=== PATIENT | female | born 1955 | race Caucasian/White ===

== ENCOUNTER 2022-08-14 09:26 | Outpatient (CLI) | payer MEDICARE, OTHER ==
[2022-08-15] MEDS ORDERED: PREG100C PO (14:29)
[2022-08-15] MEDS ORDERED: GABA-532 PO (14:29)
[2022-08-15] MEDS ORDERED: PREG50CA PO (14:29)
[2022-08-15] MEDS ORDERED: ATOR40TA PO (14:29)
[2022-08-15] MEDS ORDERED: IBUP-1957 PO (14:31)
[2022-08-15] MEDS ORDERED: OMEP40CA21 PO (14:31)
[2022-08-15] MEDS ORDERED: ALBU8HFA4 INH (14:33)
[2022-08-15] MEDS ORDERED: CYAN-51 PO (14:35)
[2022-08-15] MEDS ORDERED: CALC600T35 PO (14:35)
[2022-08-15] MEDS ORDERED: CHOL400T58 PO (17:51)
[2022-08-15] MEDS ORDERED: ESTR0.5T PO (17:51)
[2022-08-15] MEDS ORDERED: ASPI-866 PO (17:51)
[2022-08-15] MEDS ORDERED: METF-440 PO (17:51)
[2022-08-15] MEDS ORDERED: VITA200T6 PO (17:51)
== END 2022-08-14 23:59 | disposition home or self-care (01) ==
LOC: LAB 09:26
PROVIDERS: ATTEND Obstetrics & Gynecology
DX: Z01.812 Encounter for preprocedural laboratory examination (principal); Z20.822 Contact with and (suspected) exposure to COVID-19

== ENCOUNTER 2022-08-15 08:52 | Inpatient (IN) | payer MEDICARE, OTHER ==
[~2022-08-15] VITALS: Ht 152.4 cm; Wt 62.6 kg
[~2022-08-15 08:52] MED LIST: LIDOCAINE 1%-EPI 1:100,000 20 ML VIAL ONE; LIDOCAINE 2%-EPI 1:100,000 20 ML VIAL ONE
[2022-08-15] MEDS ORDERED: CEFAZOLIN 50 ML IV ONE (09:14)
[2022-08-15 09:31] LABS: HEMATOCRIT 42.1 % (31.2-41.9); MEAN CORPUSCULAR HEMOGLOBIN 29.5 uug (24.7-32.8); MEAN CORPUSCULAR VOLUME 91.1 fL (75.5-95.3); PLATELET COUNT (AUTO) 218 K/uL (179-408)
[2022-08-15 09:37] LABS: *BILIRUBIN,URIN NEGATIVE (NEGATIVE); *CLARITY,URINE CLEAR (CLEAR); *COLOR,URINE YELLOW (YELLOW); *KETONES,URINE NEGATIVE (NEGATIVE); *UROBILINOGEN,URINE 0.2 E.U./dl (NORMAL); LEUKOCYTE ESTERASE ,URINE NEGATIVE (NEGATIVE); NITRITE, URINE NEGATIVE (NEGATIVE); UGLUCOSE NEGATIVE (NEGATIVE)
[2022-08-15 09:43] LABS: *BLOOD, URINE NEGATIVE (NEGATIVE)
[2022-08-15 09:50] LABS: CREATININE 0.7 mg/dL (0.6-1.3); POTASSIUM 4.8 mmol/L (3.5-5.1)
[2022-08-15 09:56] LABS: BILIRUBIN,TOTAL 0.5 mg/dL (0.2-1.0); TOTAL PROTEIN, SERUM 7.1 g/dL (6.4-8.2)
[2022-08-15] MEDS ORDERED: FENTANYL CITRATE 100 MCG/2 ML AMPUL ONE (10:52)
[2022-08-15] MEDS ORDERED: FAMOTIDINE. 20 MG/2 ML VIAL IV ONE (10:53)
[2022-08-15] MEDS ORDERED: MIDAZOLAM HCL 2 MG/2 ML VIAL ONE (10:53)
[2022-08-15] MEDS ORDERED: ROCURONIUM BROMIDE 50 MG/5 ML VIAL ONE (10:53)
[2022-08-15] MEDS ORDERED: LIDOCAINE-MPF 2% 5 ML VIAL IJ ONE (12:36)
[2022-08-15] MEDS ORDERED: DEXAMETHASONE SOD PHOSPHATE 4 MG INJ IV ONE (12:36)
[2022-08-15] MEDS ORDERED: EPHEDRINE SULFATE 50 MG/ML AMPUL IM ONE (12:36)
[2022-08-15] MEDS ORDERED: PROPOFOL 200 MG/20 ML BOTTLE IV ONE (12:36)
[2022-08-15] MEDS ORDERED: ONDANSETRON 4 MG/2 ML VIAL IV ONE (12:36)
[2022-08-15] MEDS ORDERED: SEVOFLURANE 250 ML BOTTLE IH ONE (12:36)
[2022-08-15] MEDS: BLOOD SUGAR DIAGNOSTIC 1 EACH STRIP VI SCH ×3 (13:30→20:37)
[2022-08-15] MEDS ORDERED: INSULIN REGULAR, HUMAN 300 UNIT/3 ML VIAL SQ PRN (13:30)
[2022-08-15] MEDS ORDERED: HYDROMORPHONE 1 MG/1 ML DISP.SYRIN IV PRN (13:30)
[2022-08-15] MEDS ORDERED: INSULIN REGULAR, HUMAN 300 UNITS/3 ML VIAL SQ PRN (13:30)
[2022-08-15] MEDS ORDERED: DEXTROSE 50% 50 ML DISP.SYRIN IV PRN (13:30)
[2022-08-15] MEDS ORDERED: IV LACTATED RINGERS SOLUTION 1,000 ML IV PRN (13:30)
[2022-08-15] MEDS ORDERED: ATOR40TA PO (14:29)
[2022-08-15] MEDS ORDERED: GABA-532 PO (14:29)
[2022-08-15] MEDS ORDERED: PREG100C PO (14:29)
[2022-08-15] MEDS ORDERED: PREG50CA PO (14:29)
[2022-08-15] MEDS ORDERED: IBUP-1957 PO (14:31)
[2022-08-15] MEDS ORDERED: OMEP40CA21 PO (14:31)
[2022-08-15] MEDS ORDERED: ALBU8HFA4 INH (14:33)
[2022-08-15] MEDS ORDERED: CYAN-51 PO (14:35)
[2022-08-15] MEDS ORDERED: CALC600T35 PO (14:35)
[2022-08-15 15:00] VITALS: BP 115/54
[2022-08-15] MEDS ORDERED: MORPHINE SULFATE 2 MG/1 ML DISP.SYRIN IVP PRN (17:00)
[2022-08-15] MEDS ORDERED: ONDANSETRON 4 MG/2 ML VIAL IV PRN (17:00)
--- NOTE | 2022-08-15 17:00 | NUR ---
Pt. rcvd from surgery in bed. AAOX4. No SOB or any respiratory dress. Denies pain at this point. Continue the admission protocol. All belongings accounted for. F/C draining well.. Kept pt comfortable.
[2022-08-15] MEDS ORDERED: ESTR0.5T PO (17:51)
[2022-08-15] MEDS ORDERED: VITA200T6 PO (17:51)
[2022-08-15] MEDS ORDERED: METF-440 PO (17:51)
[2022-08-15] MEDS ORDERED: ASPI-866 PO (17:51)
[2022-08-15] MEDS ORDERED: CHOL400T58 PO (17:51)
[2022-08-15] MEDS: DOCUSATE SODIUM 100 MG CAPSULE PO SCH (18:06)
[2022-08-15] MEDS: ACETAMINOPHEN 325 MG TABLET PO PRN ×2 (18:07→20:58)
--- NOTE | 2022-08-15 19:08 | NUR ---
Gave Tylenol 650mg as per pt request for pain. Helped the pt. stand and walk 3 hours after admission as tolerated. Keep the pt. comfortable, call light within reach. As per . DO NOT DC ANITHA WILL BE THE ONE TO REMOVE THE PACKING.
[2022-08-15] MEDS: CEFAZOLIN 1 G in IV DEXTROSE 5% 50 ML IV SCH (19:31)
--- NOTE | 2022-08-15 19:42 | NUR ---
NSG: Received patient alert and oriented x4,lying in bed, no c/o pain or discomfort at this time. f/c patent draining yellow urine. continue monitoring for safety. call light w/in reach.
[2022-08-15 20:00] VITALS: BP 105/48
[2022-08-15] MEDS: METFORMIN HCL 500 MG TABLET PO SCH (20:58)
[2022-08-16] MEDS: CEFAZOLIN 1 G in IV DEXTROSE 5% 50 ML IV SCH (03:36)
[2022-08-16 04:00] VITALS: BP 118/54
--- NOTE | 2022-08-16 05:20 | NUR ---
nsg: slept well. denies any pain or discomfort at this time. vaginal packing in place. call light w/in reach.
[2022-08-16] MEDS: BLOOD SUGAR DIAGNOSTIC 1 EACH STRIP VI SCH ×2 (06:34→11:30)
[2022-08-16 07:35] LABS: HEMATOCRIT 37.6 % (31.2-41.9); MEAN CORPUSCULAR HEMOGLOBIN 29.6 uug (24.7-32.8); MEAN CORPUSCULAR VOLUME 90.6 fL (75.5-95.3); PLATELET COUNT (AUTO) 187 K/uL (179-408)
[2022-08-16 07:56] LABS: BILIRUBIN,TOTAL 0.3 mg/dL (0.2-1.0); CREATININE 0.7 mg/dL (0.6-1.3); PHOSPHOROUS 3.9 mg/dL (2.5-4.9); TOTAL PROTEIN, SERUM 5.9 g/dL (6.4-8.2)
[2022-08-16] MEDS: METFORMIN HCL 500 MG TABLET PO SCH (08:00)
[2022-08-16] MEDS ORDERED: HEPARIN SODIUM,PORCINE 5,000 UNITS/ML VIAL SQ SCH (09:00)
[2022-08-16] MEDS: DOCUSATE SODIUM 100 MG CAPSULE PO SCH (09:00)
[2022-08-16 11:36] VITALS: BP 114/54
--- NOTE | 2022-08-16 13:16 | NUR ---
1220 BG 118. ORDER PARAMETERS NOT MET. NOT GIVEN
[2022-08-16 13:44] LABS: *BILIRUBIN,URIN NEGATIVE (NEGATIVE); *CLARITY,URINE CLEAR (CLEAR); *COLOR,URINE YELLOW (YELLOW); *KETONES,URINE NEGATIVE (NEGATIVE); *UROBILINOGEN,URINE 0.2 E.U./dl (NORMAL); LEUKOCYTE ESTERASE ,URINE NEGATIVE (NEGATIVE); NITRITE, URINE NEGATIVE (NEGATIVE); PH,URINE 7.5 (5.0-8.0); UGLUCOSE NEGATIVE (NEGATIVE)
[2022-08-16 13:46] LABS: *BLOOD, URINE TRACE (NEGATIVE)
[2022-08-16 14:19] LABS: BACTERIA,URINE FEW /HPF (NONE SEEN); RBC,URINE 0-3 /HPF (0-3); SQUAMOUS EPITHELIAL CELL,UR FEW /HPF (NONE SEEN); WBC,URINE NONE SEEN /HPF (0-3)
--- NOTE | 2022-08-16 14:30 | NUR ---
pt is discharged. vss. no signs of acute distress. pt partner at bedside. godoy removed by provider/surgeon-Dr Diez. pt was able to void. discharge instructions provided. pt verbalizes understanding. IV removed.
== END 2022-08-16 14:30 | disposition home or self-care (01) | DRG 748 ==
LOC: DS 08:52 → MEDSURG3 13:31
PROVIDERS: ADMIT Internal Medicine; ATTEND Obstetrics & Gynecology
PROC: 0JQC0ZZ Repair Pelvic Region Subcutaneous Tissue and Fascia, Open Approach (ICD-10-PCS; principal; 2022-08-15)
DX: N81.3 Complete uterovaginal prolapse (principal); R39.15 Urgency of urination; N39.3 Stress incontinence (female) (male); E11.9 Type 2 diabetes mellitus without complications; I10 Essential (primary) hypertension; G89.29 Other chronic pain; Z87.898 Personal history of other specified conditions; M54.9 Dorsalgia, unspecified; M19.90 Unspecified osteoarthritis, unspecified site
CPT/HCPCS: 36415; 71045; 84100; 85025; 85730; 93005; A4649; A4663; C1757; G0378; J0690; J1100; J1644; J1815; J2250; J2405; J3010; J3490; J7040; J7120